=== PATIENT | male | born 1970 | race Caucasian/White ===

== ENCOUNTER 2016-10-18 21:49 | Emergency (ER) | payer OTHER ==
[~2016-10-18] VITALS: Ht 175.3 cm; Wt 79.4 kg
[~2016-10-18 21:49] MED LIST: AZITHROMYCIN250 MG PO; FLOMAX 0.4MG C0.4 MG PO; FLONASE 50 MCG16 GM; LORTAB 5/500 501 TAB PO; NEXIUM40 MG PO
[2016-10-18] MEDS ORDERED: AMLO5TAB PO (22:01)
--- OUTSIDE RECORDS SUMMARY | 2016-10-18 22:12 | External Medical Summary Rpt ---
Author Author , ELIZABETH JOHNSON Address Unknown Phone [email or web address] Name Relationship Address Phone MARKIE, Next Of Kin [address]IM [phone] [place] [id number] Purpose Continuity of Care Document - 05-12-2012 through 2016 Problems Code Diagnosis DOS Provider Status G89.29 Other chronic pain J01.90 Acute sinusitis, unspecified J20.9 Acute bronchitis, unspecified M54.2 Cervicalgia M54.6 Pain in thoracic spine Allergies, Adverse Reactions, Alerts Type Drug Allergy Adverse Reaction to Substance Substance Reaction Severity Morphine I-ITCHING Unknown Medications Na ND Rx Da Fi Fi Am Da Di Ph RX Ph St me C No te ll ll ou ys ag ar # ys at rm s nt no ma ic us Or Da si cy ia de te s n re d Sa 63 05 0 No li 80 -0 ne 70 4- Lo 10 20 ng Fl 07 13 er us 5 h Ac 10 ti ML ve Sy ri ng e KE 00 05 0 No TO 40 -0 RO 93 4- Lo LA 79 20 ng C 50 13 er 30 1 Ac MG ti /M ve L AL ON 00 05 0 No DA 64 -0 NS 16 4- Lo ET 08 20 ng RO 02 13 er N 5 HC Ac L ti 4 ve MG /2 ML AL BU 55 05 0 No TO 39 -0 RP 00 4- Lo STORY 18 20 ng NO 30 13 er L 1 1 Ac MG ti /M ve L AL OR 00 05 0 No OM 64 -0 ET 11 4- Lo STORY 49 20 ng ZI 53 13 er NE 5 Ac 25 ti ve MG /M L AM PU L TA 51 05 0 No MS 07 -0 UL 90 4- Lo OS 29 20 ng IN 42 13 er 0 HC Ac L ti 0. ve 4 MG CA PS UL E Vital Signs 08-14-2012 05:55 Name Value Interpretat Reference Comment ion Range Body 98.4 [degF] Temperature BP 100 mm[Hg] Diastolic BP Systolic 148 mm[Hg] Heart 66 /min Rate/Pulse O2% 95 % Respiratory 18 /min Rate 08-14-2012 05:06 Name Value Interpretat Reference Comment ion Range BP 91 mm[Hg] Diastolic BP Systolic 143 mm[Hg] Heart 70 /min Rate/Pulse O2% 98 % Respiratory 24 /min Rate Results Labs Lab Lab Date Result Refere Interp Status Commen Order Detail nces retati t Range on COMPREHENSIVE METABOLIC PANEL (08-14-2012 04:10) Glucose 157 74-106 complet 013 mg/dL ed Bld-mCn 04:10 c BUN 18 7-18 complet Bld-mCn 013 mg/dL ed c 04:10 Creat 1.3 0.8-1.3 complet SerPl-m 013 mg/dL ed Cnc 04:10 ESTIMAT 80 50-200 complet ED 013 ML/MIN ed CREATIN 04:10 INE CLEARAN CE GFR 60 Greater complet (ESTIMA 013 ML/MIN than ed OLMAN) 04:10 60 Sodium 138 136-145 complet SerPl-s 013 mmoL/L ed Cnc 04:10 Potassi 3.3 3.5-5.1 complet um 013 mmoL/L ed SerPl-s 04:10 Cnc Chlorid 100 98-107 complet e 013 mmoL/L ed SerPl-s 04:10 Cnc CO2 28 21.0-32 complet SerPl-s 013 mmoL/L .0 ed Cnc 04:10 Calcium 8.6 8.5-10. complet 013 mg/dL 1 ed SerPl-m 04:10 Cnc Prot 08-14-2 7.6 6.4-8.2 complet SerPl-m 013 gm/dL ed Cnc 04:10 Albumin 2 4.3 3.4-5.0 complet 013 gm/dL ed SerPl-m 04:10 Cnc Globuli 08-14-2 3.3 1.3-3.2 complet n 013 gm/dL ed Ser-mCn 04:10 c Albumin 1.3 UNK 1.1-1.8 complet /Glob 013 ed SerPl-m 04:10 Rto Bilirub 05-04-2 0.6 0.2-1.0 complet 013 mg/dL ed SerPl-m 04:10 Cnc AST 05-04-2 25 U/L 15-37 complet SerPl-c 013 ed Cnc 04:10 ALT 05-04-2 72 U/L 30-65 complet SerPl-c 013 ed Cnc 04:10 ALP 05-04-2 96 U/L 50-136 complet SerPl-c 013 ed Cnc 04:10 CBC with AUTO DIFF (08-14-2012 04:10) WBC # 05-04-2 8.8 4.8-10. complet Bld 013 K/MM3 8 ed Auto 04:10 RBC # 05-04-2 5.21 4.6-6.2 complet Bld 013 M/mm3 ed Auto 04:10 Hgb 05-04-2 15.9 14.1-18 complet Bld-mCn 013 g/dL .0 ed c 04:10 Hct Fr 05-04-2 46.3 % 42.0-52 complet Bld 013 .0 ed 04:10 MCV RBC 05-04-2 88.9 fl 82.2-97 complet 013 .8 ed 04:10 MCH RBC 05-04-2 30.4 pg 27-31.2 complet Qn 013 ed Auto 04:10 MEAN 05-04-2 34.3 31.8-35 complet CORPUSC 013 g/dl .4 ed ULAR 04:10 HGB CONC RDW RBC 05-04-2 13.2 % 11.5-17 complet Auto 013 .5 ed 04:10 Platele 05-04-2 257 142-424 complet t Bld 013 K/mm3 ed Ql 04:10 Manual MEAN 05-04-2 6.7 fl 7.4-10. complet PLATELE 013 4 ed T 04:10 VOLUME Granulo 05-04-2 49.8 % 37.0-80 complet cytes 013 .0 ed Fr Bld 04:10 Auto LYMPH % 05-04-2 41.5 % 10-50 complet 013 ed 04:10 Monocyt 05-04-2 5.9 % 1.7-9.3 complet es Fr 013 ed Bld 04:10 Auto Eosinop 05-04-2 2.2 % 0.1-12. complet hil Fr 013 0 ed Bld 04:10 Auto Basophi 05-04-2 0.7 % 0.1-2.0 complet ls Fr 013 ed Bld 04:10 Auto Granulo -04-2 4.4 1.3-8.0 complet cytes # 013 K/mm3 ed Bld 04:10 Auto Lymphoc -04-2 3.7 0.7-4.5 complet ytes Fr 013 K/mm3 ed Bld 04:10 Auto Monocyt -04-2 0.5 0.1-1.0 complet es # 013 K/mm3 ed Bld 04:10 Auto Eosinop -04-2 0.2 0.0-0.4 complet hil # 013 K/mm3 ed Bld 04:10 Auto Basophi -04-2 0.1 0-0.2 complet ls # 013 K/MM3 ed Bld 04:10 Auto URINALYSIS/COMPLETE (08-14-2012 04:03) URINE 08-14-2 RED YELLOW complet COLOR 013 ed 04:03 URINE 08-14-2 CLOUDY CLEAR complet APPEARA 013 ed NCE 04:03 URINE --2 NEGATIV NEG complet GLUCOSE 013 E ed - 04:03 DIPSTIC K URINE -04-2 NEGATIV NEG complet BILIRUB 013 E ed IN - 04:03 DIPSTIC K URINE -04-2 NEGATIV NEG complet KETONE 013 E mg/dL ed 04:03 URINE -04-2 1.020 1.005-1 complet SPECIFI 013 UNK .030 ed C 04:03 GRAVITY URINE 08-14-2 3+ NEG complet BLOOD 013 ed 04:03 URINE 04-2 6.5 UNK 5.0-8.5 complet PH 013 ed 04:03 URINE -04-2 TRACE NEG complet PROTEIN 013 mg/dL ed - 04:03 DIPSTIC K URINE 05-04-2 0.2 NEG complet UROBILI 013 E.U./dL ed NOGEN - 04:03 DIPSTIC K URINE 05-04-2 NEGATIV NEG complet NITRATE 013 E ed - 04:03 DIPSTIC K URINE 05-04-2 NEGATIV NEG complet LEUK 013 E ed ESTERAS 04:03 E URINE -04-2 TNTC 0 complet RBC 013 rbc/hpf ed 04:03 Encounters Encounter Start End Date Code Location Performer Type Date Emergency KAI Rivera MD (ER) 3 04:45 3 06:03 [facility]
--- OUTSIDE RECORDS SUMMARY | 2016-10-18 22:12 | External Medical Summary Rpt ---
Author Author , ELIZABETH JOHNSON Address Unknown Phone [email or web address] Immunization Name Date Rout CVX Reac Dose Comm Prov Is Faci e tion ent ider Refu lity Give sed n Infl 10-2 150 0.5 Hist WALM No WALM uenz 5-20 mL oric ART7 ART7 a 16 al 259 259 Quad Info Inj rmat ion - Sour ce Unsp ecif ied Infl 10-0 Intr 88 999 Hist D200 No D200 uenz 4-20 amus oric 31 31 a, 15 cula al UF r Info rmat ion - Sour ce Unsp ecif ied Infl 11-1 Intr 144 999 Hist [place] No [place] uenz 1-20 ader oric a, 14 mal al Intr Info ader rmat m ion - Sour ce Unsp ecif ied
--- OUTSIDE RECORDS SUMMARY | 2016-10-18 22:12 | External Medical Summary Rpt ---
Author Author , ELIZABETH JOHNSON Address Unknown Phone [email or web address] Name Relationship Address Phone MARKIE, Next Of Kin [address]IM [phone] [place] [id number] Purpose Continuity of Care Document - 05-12-2012 [...] Ac MG ti /M ve L AL [place] 00 05 0 No OM 64 -0 [...] Rivera MD (ER) 3 04:45 3 06:03 [facility]
--- OUTSIDE RECORDS SUMMARY | 2016-10-18 22:12 | External Medical Summary Rpt ---
Author Author [employer] Organization [employer] Address Unknown Phone Unavailable Purpose Continuity of Care Document - through 2016
--- OUTSIDE RECORDS SUMMARY | 2016-10-18 22:12 | External Medical Summary Rpt ---
Author Author , ELIZABETH JOHNSON Address Unknown Phone [email or web address] Immunization Name Date Rout CVX Reac Dose [...] ied Infl 11-1 Intr 144 999 Hist [place] No [place] uenz 1-20 ader oric a, 14 mal al Intr Info ader rmat m ion - Sour ce Unsp ecif ied
--- OUTSIDE RECORDS SUMMARY | 2016-10-18 22:13 | External Medical Summary Rpt ---
Author Author ELIZABETH Santizo, [facility] [employer] Organization [facility] [employer] Address Unknown Phone Unavailable Results XR THORACIC SPINE AP AND LATERAL Observa Value Referen Units Interpr Notes Date tion ce etation Range \.br\XR No No No No Jun 30 informa informa informa informa 2017 THORACI tion in tion in tion in tion in 5:02 PM C SPINE source source source source AP AND data data data data LATERAL 07/01/19 17 5:02 PM\.br\ \.br\HI STORY: M54.6-P ain in thoraci c spine-I CD-10-C M.\.br\ \.br\\. br\\.br \COMPAR E: None availab le\.br\ \.br\FI NDINGS: \.br\\. br\Ther e is moderat e degener ative change in the thoraci c spine with disc space\. br\narr owing and spurrin g. There is high-de nsity materia l at the disc space\. br\T11- 12\.br\ which could be calcifi cation of the disc space. No charissa cj fractur es.\.br \Alignm ent is maintai jonny\.br \\.br\I MPRESSI ON:\.br \\.br\M oderate discoge jacqui change of the thoraci c spine.\ .br\ XR CERVICAL SPINE AP LATERAL ODONTOID AND OBLIQUE Observa Value Referen Units Interpr Notes Date tion ce etation Range XR No No No No Jun 30 CERVICA informa informa informa informa 2017 L SPINE tion in tion in tion in tion in 5:02 PM AP source source source source LATERAL data data data data ODONTOI D AND OBLIQUE : 07/01/19 17 5:02 PM\.br\ \.br\HI STORY: M54.2-C ervical nany-ICD -10-CM\ .br\G89 .29-Oth er chronic pain-IC D-10-CM \.br\\. br\IMPR ESSION: \.br\No signifi cant osseous , joint or soft tissue abnorma lity is seen.\. br\ MRI LUMBAR SPINE WO CONTRAST Observa Value Referen Units Interpr Notes Date tion ce etation Range MRI No No No No September 04 LUMBAR informa informa informa informa 2016 SPINE tion in tion in tion in tion in 3:25 PM WO source source source source CONTRAS data data data data T\.br\/ 6 3:25 PM\.br\ History : 45 years .Male. M51.26- Other interve rtebral disc displac ement,\ .br\lum bar\.br \region -ICD-10 -CM.\.b r\Techn ical: Axial, sagitta l T1 and T2 imaging .\.br\\ .br\FIN DINGS:\ .br\1. Vertebr al body height preserv ed. Promine nt small nodes L1.\.br \Inhomo geneous \.br\ma rrow signal consist ent with normal aging changes .\.br\2 . Disc height preserv ed with minor disc desicca tion through out the\.br \spine. \.br\3. T11-T12 , T12-L1, L1-L2: Normal disc margin and canal.\ .br\4. L2-L3, L3-L4, and L5-S1: Annular bulge.\ .br\5. L4-L5: Small central subliga mentous disc protrus ion with minimal \.br\co mpressi on\.br\ of the ventral margin of thecal sac. No root charissa cj.\. br\6. No focal disc protrus ion.\.b r\\.br\ IMPRESS ION: Small central disc protrus ion L4-L5 with minimal charissa cj\.b r\of\.b r\theca l sac. No root charissa cj. No canal or neural foramin al stenosi s.\.br\ CMP Observa Value Referen Units Interpr Notes Date ti ce etation Range Sodium 138 136 - mmol/L No No Jul 01 145 informa informa 2016 tion in tion in 3:21 PM source source data data Potassi 3.9 3.5 - mmol/L No No Jul 01 um 5.0 informa informa 2016 [Moles/ tion in tion in 3:21 PM volume] source source in data data Serum or Plasma Chlorid 99 98 - mmol/L No No Jul 01 e 107 informa informa 2016 tion in tion in 3:21 PM source source data data Carbon 28 22 - 29 mmol/L No No Jul 01 dioxide informa informa 2016 , total tion in tion in 3:21 PM source source [Moles/ data data volume] in Serum or Plasma Anion 11 7 - 16 mmol/L No No Jul 01 Gap informa informa 2016 tion in tion in 3:21 PM source source data data CALCIUM 8.9 8.6 - mg/dL No No Jul 01 .TOTAL 10.2 informa informa 2016 tion in tion in 3:21 PM source source data data Glucose 81 74 - mg/dL No No Jul 01 Lvl 100 informa informa 2016 tion in tion in 3:21 PM source source data data BUN 14 6 - 20 mg/dL No No Jul 01 informa informa 2016 tion in tion in 3:21 PM source source data data Creatin 1.01 0.67 - mg/dL No No Jul 01 ine 1.30 informa informa 2016 tion in tion in 3:21 PM source source data data Albumin 4.3 3.5 - gm/dL No No Jul 01 5.2 informa informa 2016 [Mass/v tion in tion in 3:21 PM olume] source source in data data Serum or Plasma Protein 7.1 6.4 - gm/dL No No Jul 01 8.3 informa informa 2016 [Mass/v tion in tion in 3:21 PM olume] source source in data data Serum or Plasma Bilirub 0.5 0.1 - mg/dL No No Jul 01 in.tota 1.4 informa informa 2016 l tion in tion in 3:21 PM [Mass/v source source olume] data data in Serum or Plasma ASPARTA 18 <=40 IU/L No No Jul 01 TE informa informa 2016 AMINOTR tion in tion in 3:21 PM ANSFERA source source SE data data Alanine 25 <=41 IU/L No No Jul 01 informa informa 2016 aminotr tion in tion in 3:21 PM ansfera source source se data data [Enzyma tic activit y/volum e] in Serum or Plasma Alkalin 61 40 - IU/L No No Jun 21 e 129 informa informa 2016 phospha tion in tion in 3:21 PM tase source source [Enzyma data data tic activit y/volum e] in Serum or Plasma Auto Diff Observa Value Referen Units Interpr Notes Date tion ce etation Range Neutrop 49.1 No % No No Jul 01 hils informa informa informa 2016 [#/volu tion in tion in tion in 3:14 PM me] in source source source Blood data data data by Automat ed count Lymphoc 40.3 No % No No Jul 01 ytes informa informa informa 2016 [#/volu tion in tion in tion in 3:14 PM me] in source source source Blood data data data by Automat ed count Monocyt 8.2 No % No No Jul 01 es informa informa informa 2016 [#/volu tion in tion in tion in 3:14 PM me] in source source source Blood data data data by Automat ed count Eos 1.5 No % No No Jul 01 Percent informa informa informa 2016 tion in tion in tion in 3:14 PM source source source data data data Baso 0.9 No % No No Jul 01 Percent informa informa informa 2016 tion in tion in tion in 3:14 PM source source source data data data Neut# 3.0 1.8 - x10(3)/ No No Jul 01 7.7 mcL informa informa 2016 tion in tion in 3:14 PM source source data data Lymph# 2.5 0.6 - x10(3)/ No No Jul 01 4.8 mcL informa informa 2016 tion in tion in 3:14 PM source source data data Hudspeth# 0.5 0.0 - x10(3)/ No No Jul 01 1.3 mcL informa informa 2016 tion in tion in 3:14 PM source source data data Eos# 0.1 0.0 - x10(3)/ No No Jul 01 0.5 mcL informa informa 2016 tion in tion in 3:14 PM source source data data Baso# 0.1 0.0 - x10(3)/ No Jul 01 0.2 mcL informa informa 2016 tion in tion in 3:14 PM source source data data CBC Observa Value Referen Units Interpr Notes Date tion ce etation Range LEUKOCY 6.2 4.0 - x10(3)/ No Jul 01 MIGUEL ANGEL 11.0 mcL informa informa 2016 tion in tion in 3:14 PM source source data data Erythro 4.66 4.30 - x10(6)/ No Jul 01 cytes 5.81 mcL informa informa 2016 [#/volu tion in tion in 3:14 PM me] in source source Blood data data by Automat ed count Hemoglo 14.2 13.5 - gm/dL No Jul 01 bin 17.1 informa informa 2016 [Mass/v tion in tion in 3:14 PM olume] source source in data data Blood Hematoc 41.9 38.9 - % No Jul 01 rit 51.6 informa informa 2016 [Volume tion in tion in 3:14 PM source source Fractio data data n] of Blood by Automat ed count Erythro 89.8 82.5 - fL No Jul 01 cyte 99.8 informa informa 2016 mean tion in tion in 3:14 PM corpusc source source ular data data volume [Entiti c volume] by Automat ed count Erythro 30.6 27.0 - pg No Jul 01 cyte 34.3 informa informa 2016 mean tion in tion in 3:14 PM corpusc source source ular data data hemoglo bin [Entiti c mass] by Automat ed count Erythro 34.0 32.1 - gm/dL No Jul 01 cyte 35.3 informa informa 2016 mean tion in tion in 3:14 PM corpusc source source ular data data hemoglo bin concent ration [Mass/v olume] by Automat ed count Erythro 12.5 11.5 - % No Jul 01 cyte 15.0 informa informa 2016 distrib tion in tion in 3:14 PM ution source source width data data [Ratio] by Automat ed count Platele 203 144 - x10(3)/ No No Jul 01 ts 423 mcL informa informa 2015 [#/volu tion in tion in 3:14 PM me] in source source Blood data data by Automat ed count MPV 7.6 6.8 - fL No No Jul 01 10.8 informa informa 2016 tion in tion in 3:14 PM source source data data EK EKG 12 LEAD Observa Value Referen Units Interpr Notes Date tion ce etation Range Station No No No No Jul 01 maddie ECG informa informa informa informa 2016 tion in tion in tion in tion in 2:02 PM Study\. source source source source br\St. data data data data [facility]\ .br\Int erpreti ve Stateme nts\.br \SINUS RHYTHM\ .br\Nor mal ECG\.br \Electr onicall y Signed On 07-02-19 16 22:20:3 4 EDT by Korey Haque MD US RIGHT UPPER QUADRANT Observa Value Referen Units Interpr Notes Date tion ce etation Range \.br\US No No No No Jun 20 RIGHT informa informa informa informa 2016 UPPER tion in tion in tion in tion in 4:38 PM QUADRAN source source source source T data data data data 06/21/19 16 4:38 PM\.br\ \.br\HI STORY: R10.9-U nspecif ied abdomin al pain-IC D-10-CM . COMPARE : None.\. br\Barber elation made with recent CT abdomen perform ed 06/08/19 16.\.br \\.br\1 . There are small gallbla dder polyps. Small amount of gallbla dder sludge. \.br\No \.br\ga llstone s are identif ied.\.b r\2. Echogen icity of the liver appears mildly and diffuse ly increas ed,\.br \sugges ting\.b r\possi ble fatty infiltr ation. Technol ogist noted a band of relativ e\.br\d ecrease d\.br\e chogeni city within the liver immedia tely adjacen t to the gallbla dder.\. br\This is\.br\ most likely an area of focal fatty sparing . No abnorma lity of the liver\. br\can be\.br\ identif ied on review of recent abdomin al CT.\.br \3. Visuali zed parts of the pancrea s appear normal. CBD normal caliber , 2\.br\m m.\.br\ Limited views of right kidney demonst rate no hydrone phrosis .\.br\\ .br\IMP RESSION : Finding s describ ed above suggest ing possibl e fatty\. br\infi ltratio n of\.br\ the liver with an area of possibl e focal fatty sparing adjacen t to the\.br \gallbl adder. These finding s were inappar ent on recent abdomin al CT.\.br \Theref ore,\.b r\advis e follow- up hepatic ultraso und in 6 months to assess stabili ty of\.br\ these\. br\find ings. Small gallbla dder polyps. No evidenc e of choleli thiasis .\.br\ CT ABDOMEN PELVIS W CONTRAST Observa Value Referen Units Interpr Notes Date tion ce etation Range ABDOMEN No No No No Jun 08 AND informa informa informa informa 2016 PELVIS tion in tion in tion in tion in 12:25 CT WITH source source source source PM data data data data CONTRAS 16\.br\ \.br\CO MPARISO N: 08/05/19 09, CT angiogr am chest 07/06/19 13.\.br \\.br\I NDICATI ON: 44-year -old with right lower quadran t and right groin pain for\.br \2-3\.b r\month s, getting worse over last month. History of prior hernia repair. \.br\R1 0.30-Lo wer abdomin al pain, unspeci fied-IC D-10-CM \.br\R1 0.9-Uns pecifie d abdomin al pain-IC D-10-CM .\.br\\ .br\OCTAVIA HNICAL FACTORS : 5mm axial images obtaine d from lung bases to symphys is\.br\ pubis\. br\foll owing adminis tration oral contras t and 75 ml IV Isovue 370. Coronal \.br\an d\.br\s agittal reconst ruction s obtaine d.\.br\ \.br\FI NDINGS: \.br\\. br\Smal l inferio r left para esophag eal and medial left lung base calcifi ed\.br\ granulo mas noted. No focal infiltr ates.\. br\\.br \Liver attenua tion is slightl y low with respect to the spleen. No focal\. br\hepa tic\.br \or splenic parench ymal defects other than a couple tiny calcifi ed\.br\ granulo mas.\.b r\Gallb ladder, adrenal glands and kidneys are normal. \.br\\. br\No abnorma lity of small bowel. Appendi x is long. Within its distal aspect\ .br\is a\.br\t iny narrow appendi colith or minimal residua l oral contras t. There are no\.br\ right\. br\lowe r quadran t inflamm atory changes . Sigmoid colon is mildly redunda nt. No\.br\ diverti culosis or abnorma l colon wall thicken ing. Bladder is decompr essed.\ .br\Pro state is unremar kable. No new or recurre nt right inguina l or other\. br\ludivina ia. No\.br\ lymphad enopath y. No signifi cant atheros cleroti c calcifi cation or aneurys m\.br\w ithin\. br\abdo men or pelvis. Few phlebol iths are on both sides of lower pelvis. \.br\\. br\L1 and L3 vertebr al bodies have Schmorl 's node defects . Small area of\.br\ scleros is\.br\ central posteri or L1 vertebr al body is unchang ed in appeara nce on axial\. br\imag es.\.br \T11-T1 2 disc space is chronic ally calcifi ed. There is hypopla stic left\.b r\12th rib.\.b r\\.br\ IMPRESS ION:\.b r\1. No acute abdomin al or pelvic process or other finding to explain \.br\pa tient's \.br\sy mptoms. \.br\ CT ANGIOGRAM CORONARY W CONTRAST Observa Value Referen Units Interpr Notes Date tion ce etation Range CT No No No No September 08 CORONAR informa informa informa informa 2013 Y tion in tion in tion in tion in 2:30 PM ARTERIE source source source source S WITH data data data data CONTRAS T September 08, 2013 02:31:2 1 PM\.br\ \.br\IN DICATIO NS: V82.9-S creenin g for unspeci fied conditi on-ICD- 9-CM\.b r\\.br\ TECHNIC AL: Heart rate control was done with 100 mg metopro lol p.o.. 0.4mg\. br\of SL NTG was given.\ .br\75 mL Isovue 370 intrave nous contras t materia l. CCTA prospec tive gated\. br\tech nique utilize d for\.br \[place] ry artery visuali zation and assessm ent.\.b r\\.br\ For optimiz ation of anatomi c evaluat ion, advance d 3-D off-yuri e\.br\p ost-pro cessing was perform ed.\.br \This include d multi-p lanar reconst ruction and maximum intensi ty\.br\ project ions.\. br\\.br \FINDIN GS:\.br \\.br\C ORONARY ARTERIE S:\.br\ \.br\LE FT MAIN: [X] Normal\ .br\\.b r\[ ] Mild narrowi ng, up to 24%\.br \[ ] Moderat e narrowi ng, 25-49%\ .br\[ ] Severe narrowi ng, 50% or greater \.br\[ ] Occlusi on\.br\ \.br\LA D: [ ] Normal\ .br\\.b r\Locat ion of stenosi s [X ] proxima l 1/3 [ ] mid 1/3 [ ]\.br\d istal\. br\\.br \[ X] Minimal narrowi ng, 1-24%\. br\[ ] Mild narrowi ng,25-4 9%\.br\ [ ] Moderat e narrowi ng, 50-74%\ .br\[ ] Severe narrowi ng, 75% or greater \.br\[ ] Occlusi on\.br\ \.br\Mi nimal predomi nately calcifi ed plaque is present in\.br\ the proxima l LAD\.br \area there is positiv e remodel ing and less than 20% stenosi s. A small\. br\izabella s interme dius branch\ .br\is present . The first diagona l branch is small. The second diagona l branch\ .br\is large. The LAD is\.br\ patent to the cardiac apex.\. br\\.br \CIRCUM FLEX:\. br\[ X] Normal\ .br\\.b r\Locat ion of stenosi s [ ] proxima l 1/3 [ ] mid / [ ]\.br\d istal\. br\\.br \[ ] Minimal narrowi ng, 1-24%\. br\[ ] Mild narrowi ng,25-4 9%\.br\ [ ] Moderat e narrowi ng, 50-74%\ .br\[ ] Severe narrowi ng, 75% or greater \.br\[ ] Occlusi on\.br\ \.br\Th is is a normal sized vessel that is widely patent. \.br\\. br\RCA: [ X] Normal\ .br\\.b r\Locat ion of stenosi s [ ] proxima l 1/3 [ ] mid 1/3 [ ]\.br\d istal\. br\\.br \[ ] Minimal narrowi ng, 1-24%\. br\[ ] Mild narrowi ng,25-4 9%\.br\ [ ] Moderat e narrowi ng, 50-74%\ .br\[ ] Severe narrowi ng, 75% or greater \.br\[ ] Occlusi on\.br\ \.br\Th is is a normal sized vessel that is widely patent\ .br\and supplie s the PDA\.br \and LV posteri or lateral branche s.\.br\ \.br\\. br\NONC ORONARY STRUCTU RES: The pericar dium and the left atrial appenda ge are\.br \normal . The aortic\ .br\elinor ve is tricusp id. Pulmona ry venous anatomy is standar d. The visuali zed\.br \parts of the lungs are\.br \clear. Visuali zed portion s of the thoraci c aorta are normal. Bilater al\.br\ hilar, subcari nal and\.br \left paraeso phageal calcifi ed nodes present from healed granulo matous\ .br\dis ease.\. br\\.br \IMPRES CJ: Minimal proxima l LAD calcifi ed plaque. Widely patent coronar y\.br\a rteries . Right\. br\tomeka nant system. CT ANGIOGRAM CHEST W CONTRAST Observa Value Referen Units Interpr Notes Date tion ce etation Range TEXT CT No No No No Jul 05 DIAGNOS angiogr informa informa informa informa 2013 IS aphy tion in tion in tion in tion in 10:05 BATTERY chest, source source source source AM data data data data 013:\.b r\\.br\ HISTORY : Dyspnea and chest pain. Rule out pulmona ry embolus .\.br\\ .br\COM PARISON : CT chest noncont rast 013.\.b r\\.br\ Spiral CT angiogr aphy chest utilizi ng 75 mL Isovue 370 intrave nous\.b r\contr ast. Volume rendere d\.br\M IP imaging reviewe d separat sedrick 3-D worksta tion with Vitrea: \.br\\. br\No suspici ous pulmona ry artery filling defects seen. No evidenc e of\.br\ thoraci c aortic aneurys m.\.br\ Thoraci c aorta and great vessels not well-op acified due to pulmona ry\.br\ artery timing of bolus.\ .br\Denver nt coronar y artery calcifi cation noted. No pleural or pericar dial\.b r\effus ion. Calcifi ed hilar\. br\and mediast inal lymph nodes redemon strated and consist ent with healed\ .br\gra nulomat ous disease .\.br\L ungs grossly clear. Punctat e calcifi cation interpo le region left kidney\ .br\on lowest cuts could\. br\be nonobst ructing intrare nal calculu s versus vascula r calcifi cation. \.br\\. br\IMPR ESSION: \.br\1. No CT evidenc e for pulmona ry embolus . FL < 1 HOUR Observa Value Referen Units Interpr Notes Date tion ce etation Range Bronch on 4c... done TEXT Fluoros No No No No Jun 11 DIAGNOS copy informa informa informa informa 2012 IS was tion in tion in tion in tion in 8:41 AM BATTERY perform source source source source ed. The data data data data radiolo gist was not in attenda nce. No\.br\ permane nt images were obtaine d. This dictati on is being made for record\ .br\jeanmarie ping purpose s.\.br\ CT CHEST HIGH RESOLUTION WO CONTRAST Observa Value Referen Units Interpr Notes Date tion ce etation Range TEXT CT SCAN No No No No May 19 DIAGNOS OF THE informa informa informa informa 2012 IS CHEST tion in tion in tion in tion in 10:31 BATTERY WITHOUT source source source source AM data data data data CONTRAS T WITH ADDITIO N OF HIGH-RE SOLUTIO NCUTS DURING INSPIRA TIONAND EXPIRAT IONDATE : 013TIME : 10:11 a.m.HIS TORY: Cough and shortne ss of breath. TECHNIC AL FACTORS : Spiral scannin g is perform ed of the chest with coronal and sagitta lrecons tructio ns. In additio n, inspira tory and expirat ory high-re solutio nimages were perform ed.FIND INGS: There is no mediast inal or hilar mass or adenopa thy. There arecalc ified mediast inaland hilar lymph nodes from prior granulo matous disease .The tracheo bronchi al tree is patent. They are scatter ed calcifi edgranu farhan of the lungs.O n the high-re solutio n images, there are no reticul ar densiti es or nodules identif ied. There isno definit e bronchi ectasis .There is a mosaic pattern on the expirat ory films consist ent with someobs tructiv e bronchi aldisea se.IMPR ESSION: Bronchi al obstruc tive pattern on the expirat oryhigh -resolu tion images. If thepati ent is a smoker, this would be suspect for respira tory bronchi olitis. XR CHEST PA AND LATERAL Observa Value Referen Units Interpr Notes Date tion ce etation Range TEXT PA and No No No No May 12 DIAGNOS Lateral informa informa informa informa 2013 IS Chest: tion in tion in tion in tion in 10:41 BATTERY Apr source source source source 30, data data data data 2012 10:42:[facility]: 786.2-C ough-IC D-9-CMF indings : The heart and lungs are within normal limits. Impress ion: Normal chest.
--- OUTSIDE RECORDS SUMMARY | 2016-10-18 22:13 | External Medical Summary Rpt ---
[...] in 3:14 PM source source data data [place]# 0.5 0.0 - x10(3)/ No No Jul [...] data data data data 2012 10:42:0 2 [facility] ry: 786.2-C ough-IC D-9-CMF indings : The heart and lungs are within normal limits. Impress ion: Normal chest.
--- NOTE | 2016-10-18 22:23 | Emergency Room Report ---
History of Present Illness Time Seen by [id number] Presenting Problem in Triage Pt arrived:Wheelchair Presenting Problem:PT C/O RIGHT FLANK PAIN ONSET 1600 THIS AFTERNOON. PT WITH HX OF KIDNEY STONES AND STS "THE LAST TIME IT WAS WORST THAN THIS. I'VE TRIED TO DRINK A LOT OF WATER AND PASS THIS ONE ON MY OWN. BUT IT'S GETTING WORSE." PT ALSO C/O NAUSEA AND CONSTIPATION. 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 N Clinical Suspician of Infection? N Mental Status: 1 - Regular (Normal Baseline) Sepsis Risk:Low Sepsis Risk Have you (or family members/close friends) recently traveled outside the [place]? N If Yes, where/when: Have you had exposure to infectious disease within the past month? N TB? Other? Specify: Source patient, RN notes reviewed, family, old records Exam Limitations no limitations Comment acute onset of rt flank pain with nausea but no fever or hematuria/has hx of kidney stone Cardiac Chest Pain Chest pain indicative of cardiac No Timing/Duration this evening Severity moderate ALLERGIES Coded Allergies: morphine (Mild, I-ITCHING 10/18/16) Home Medications Reported Medications Esomeprazole Magnesium (Nexium 40MG Cap) 40 MG PO PRN Fluticasone Propionate (Flonase 50 Mcg Nasal [place]) 2 SPRAY NA DAILY #1 BOT Amlodipine Besylate (Amlodipine) 5 MG PO DAILY #30 History Medical History General CAD? No Angina: No SD: No Hypertension? Yes Hyperlipidemia? No CHF? No DVT? No PE? No COPD? No Asthma? No Anemia? No GERD? No Gastric ulcers? No GI Bleed? No Hernia? No Thyroid Problems? No Hypothyroidism? No CVA? No Seizures? No Diabetes? No Renal Insuffiency? No End Stage Renal Disease? No UTI? No Stones? Yes BPH? No GB Disease: Yes Nephritic Syndrome? No Asplenia? No Hepatitis? No Sickle Cell Disease? No Arthritis? No Migraines? No Cataracts? No Glaucoma? No MRSA? No HIV? No TB? No Anxiety? No Depression? No Cancer? No More? No Immunization Hx DT/Tetanus > 10 YRS Surgical Hx Previous Surgery?Y HERNIA RT Cholecystectomy Social History Smoking Hx Smoker: Never Smoker Tobacco: No Alcohol Alcohol: Yes Drugs none Review of Systems All Other Systems Reviewed and Negative Constitutional denies fever Eyes denies drainage ENT denies: ear discharge, epistaxis, throat pain. Respiratory denies cough, denies shortness of breath, denies wheezing Cardiovascular denies chest pain, denies palpitations, denies syncope Gastrointestinal see HPI, nausea, denies vomiting Genitourinary see HPI, scrotal/testicular pain. denies: dysuria, frequency, hesitancy, hematuria. Musculoskeletal denies joint pain, denies joint swelling Skin denies rash Psychiatric/Neurological denies headache, denies seizure Physical Exam Vital Signs Vital Signs Date Time Temp Pulse Resp B/P Pulse O2 O2 Flow FiO2 Ox Delivery Rate 10/18 2240 62 20 159/67 98 10/18 2155 98.6 75 20 173/116 100 General Appearance no apparent distress Eye Exam - bilateral eye PERRL, bilateral eye EOMI Ear, Nose, Throat normal ENT inspection Neck supple Respiratory Status No: respiratory distress. 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 No Results/Orders Laboratory Tests 10/18/162237: Sodium Pending, Potassium Pending, Chloride Pending, Carbon Dioxide Pending, BUN Pending, Creatinine Pending, Estimated Creat Clear Pending, Estimated GFR (MDRD) Pending, Glucose Pending, Calcium Pending, Total Bilirubin Pending, AST Pending, ALT Pending, Alkaline Phosphatase Pending, Total Protein Pending, Albumin Pending, Globulin Pending, Albumin/Globulin Ratio Pending, WBC Pending, RBC Pending, Hgb Pending, Hct Pending, MCV Pending, RDW Pending, Plt Count Pending, Gran % Pending, Gran # Pending, Lymphocytes % Pending, Eosinophils % Pending, Basophils % Pending, Lymphocytes # Pending, Eosinophils # Pending, Basophils # Pending, PUBS MCHC Pending, MCH Pending 10/18/162206: Urine Color YELLOW, Urine Appearance SL CLOUDY, Urine pH 6.5, Ur Specific [place] 1.020, Urine Protein NEGATIVE, Urine Ketones NEGATIVE, Urine Blood 3+ H , Urine Nitrate NEGATIVE, Urine Bilirubin NEGATIVE, Urine Urobilinogen 0.2, Ur Leukocyte Esterase NEGATIVE, Urine Glucose NEGATIVE Current Medication Orders Sig/Randy Start time Last Medication Dose Route Stop Time Status Admin Acetaminophen/ 1 JULIO ONCE ONE 10/18 2329 r Codeine Phosphate PO 10/18 2330 Hydrocodone Bitart/ 1 TAB ONCE ONE 10/18 2329 r Acetaminophen PO 10/18 2330 Ketorolac 30 MG ONCE ONE 10/18 2329 AC Tromethamine IV 10/18 2330 Tamsulosin HCl 0.4 MG ONCE ONE 10/18 2329 AC PO 10/18 2330 Sodium Chloride 10 ML PRN PRN 10/18 2199 AC IV 10/19 2154 Orders Procedure Date/time Status DIET-NOTHING BY MOUTH 10/[address] ABD & PELVIS W/O CONTRAST 10/[address] SCAN REQ 10/18 2154 Active IV SALINE LOCK 10/18 2154 Active URINALYSIS/COMPLETE 10/18 2154 Complete COMPLETE METABOLIC PANEL 10/18 2154 Active CBC WITH AUTO DIFF 10/18 2154 Active XRAY/CT/US XRAY/CT/US CT abdomen, pelvis CT interpretation by discussed w/radiologist Time results known: 2320 CT Results abnormal (3 mm stone) Departure Departure Time of Disposition 2318 Disposition DC Home or Self Care(routine) Clinical Impression Primary Impression: Renal colic on right side Condition STABLE Referrals Jennifre PATEL,Eric Werner MD,Silas Patient Instructions DI for Kidney Stones Additional Instructions call pcp for follow up Prescriptions Current Visit Scripts TAMSULOSIN HCL (Flomax 0.4MG) 0.4 MG PO QHS #15 CAP ED Critical Care Critical Care No at 2322
[2016-10-18 23:16] LABS: LYMPH # 2.6 K/mm3 (0.7-4.5); LYMPH % 36.1 % (10-50)
[2016-10-18 23:23] LABS: URINE BILIRUBIN - DIPSTICK NEGATIVE (NEG); URINE BLOOD 3+ (NEG)
[2016-10-18] MEDS ORDERED: FLOMAX 0.4MG C0.4 MG PO (23:29)
[2016-10-18 23:52] VITALS: BP 133/76
[2016-10-19] MEDS ORDERED: GLYCOLAX17 GM/DOSE PO (09:39)
[2016-10-19] MEDS ORDERED: PERCOCET1 TAB PO (11:11)
--- NOTE | 2016-10-19 15:25 | RADIOLOGY REPORT PS360 ---
CT ABD PELVIS W/O CONTRAST Ordering Physician: Alexander Rivera MD Patient Age: 46 years: Male HISTORY: FLANK PAINright flank pain COMPARISON is made to previous CT abdomen and pelvis 08/14/2012. TECHNIQUE: Helical CT scanning performed through the abdomen and pelvis with sagittal and coronal reconstructions on CT workstation. FINDINGS: Lower thorax. No acute findings. Heart normal size Abdomen/Pelvis.. Lack of oral & IV contrast decreases sensitivity. Liver, Spleen,.: No significant findings Pancreas. Stable appearance Adrenals unremarkable Gallbladder surgically removed. No biliary ductal dilatation. No retroperitoneal nor mesenteric adenopathy. tract RIGHT KIDNEY. Mild hydronephrosis. Mild dilatation of the right ureter down to the 4 mm x 3 mm calculus at distal right ureter.. Axial [id number].. This distal ureteral calculus is seen at the right pelvis basin approximately 3 cm above the right UVJ. It can be seen on the CT sales mgr film.. I would note that there are other stable phleboliths more inferior to this again observed and unchanged. Right kidney: There is also a nonobstructive calculus at the right kidney. 3.4 mm size portion right kidney noted LEFT KIDNEY: unremarkable. No calculi. Left ureter unremarkable. Urinary bladder with no calculi. Generous seminal vesicles. Moderate size prostate. No free fluid at pelvis. GI tract.: No bowel dilatation or obstruction. Moderate stool throughout the colon. Appendix appears normal. Terminal ileum unremarkable. Calcified azygous node to the left of the distal esophagus unchanged. Bones. Mild degenerative changes of lumbar and lower thoracic spine unchange since 2012 = IMPRESSION 1. Mild obstructive uropathy on right. Mild hydronephrosis with mild dilatation right ureter down to the 4 x 3 mm stone at right pelvic ureter.. 2.. Minor other observations intact.
--- NOTE | 2016-10-19 15:25 | RADIOLOGY REPORT PS360 ---
CT ABD PELVIS W/O CONTRAST Ordering Physician: Alexander Rivera MD Patient Age: 46 years: Male HISTORY: FLANK PAINright flank pain COMPARISON is made to previous CT abdomen and pelvis 08/14/2012. TECHNIQUE: Helical CT scanning performed through the abdomen and pelvis with sagittal and coronal reconstructions on CT workstation. FINDINGS: Lower thorax. No acute findings. Heart normal size Abdomen/Pelvis.. Lack of oral & IV contrast decreases sensitivity. Liver, Spleen,.: No significant findings Pancreas. Stable appearance Adrenals unremarkable Gallbladder surgically removed. No biliary ductal dilatation. No retroperitoneal nor mesenteric adenopathy. tract RIGHT KIDNEY. Mild hydronephrosis. Mild dilatation of the right ureter down to the 4 mm x 3 mm calculus at distal right ureter.. Axial [id number].. This distal ureteral calculus is seen at the right pelvis basin approximately 3 cm above the right UVJ. It can be seen on the CT shipping inspector film.. I would note that there are other stable phleboliths more inferior to this again observed and unchanged. Right kidney: There is also a nonobstructive calculus at the right kidney. 3.4 mm size portion right kidney noted LEFT KIDNEY: unremarkable. No calculi. Left ureter unremarkable. Urinary bladder with no calculi. Generous seminal vesicles. Moderate size prostate. No free fluid at pelvis. GI tract.: No bowel dilatation or obstruction. Moderate stool throughout the colon. Appendix appears normal. Terminal ileum unremarkable. Calcified azygous node to the left of the distal esophagus unchanged. Bones. Mild degenerative changes of lumbar and lower thoracic spine unchange since 2012 = IMPRESSION 1. Mild obstructive uropathy on right. Mild hydronephrosis with mild dilatation right ureter down to the 4 x 3 mm stone at right pelvic ureter.. 2.. Minor other observations intact.
== END 2016-10-18 23:53 | disposition home or self-care (01) ==
LOC: ER 21:49
PROVIDERS: Emergency Medicine
DX: N13.2 Hydronephrosis with renal and ureteral calculous obstruction (principal); Z87.442 Personal history of urinary calculi